=== PATIENT | male | born 1960 | race Caucasian/White ===

== ENCOUNTER 2016-04-30 10:18 | Emergency (ER) | payer OTHER ==
[2016-04-30] MEDS ORDERED: KETOROLAC 60 MG/2 ML VIAL IM ONE (12:21)
== END 2016-04-30 12:45 | disposition home or self-care (01) ==
LOC: ER 10:44
DX: M54.12 Radiculopathy, cervical region (principal); M54.2 Cervicalgia; Z79.899 Other long term (current) drug therapy; F17.210 Nicotine dependence, cigarettes, uncomplicated
CPT/HCPCS: 96372